=== PATIENT | male | born 1945 | race Caucasian/White ===

== ENCOUNTER 2021-07-15 23:10 | Emergency (ER) | payer OTHER, MEDICARE ==
[2021-07-15] MEDS ORDERED: Bacitracin 1 PK ONE (23:40)
[2021-07-16] MEDS ORDERED: Boostrix 0.5 ML (Tdap) VIAL ONE (00:13)
== END 2021-07-16 00:42 | disposition home or self-care (01) ==
LOC: CSHERS 23:10
DX: S90.112A Contusion of left great toe without damage to nail, initial encounter (principal); S80.812A Abrasion, left lower leg, initial encounter; S50.311A Abrasion of right elbow, initial encounter; I10 Essential (primary) hypertension; E78.00 Pure hypercholesterolemia, unspecified; F17.290 Nicotine dependence, other tobacco product, uncomplicated; Z79.82 Long term (current) use of aspirin; Z79.899 Other long term (current) drug therapy; Z23 Encounter for immunization; W01.0XXA Fall on same level from slipping, tripping and stumbling without subsequent striking against object, initial encounter; Y92.480 Sidewalk as the place of occurrence of the external cause
CPT/HCPCS: 90471; 90715

== ENCOUNTER 2024-01-24 10:56 | Outpatient (CLI) | payer MEDICARE | END 2024-01-24 10:57 | disposition home or self-care (01) | LOC: CSHCT 10:56 | PROVIDERS: ATTEND Family Medicine | DX: Z12.2 Encounter for screening for malignant neoplasm of respiratory organs (principal); Z72.0 Tobacco use | CPT/HCPCS: 71271 ==